=== PATIENT | male | born 2000 | race African-American/Black ===

== ENCOUNTER 2018-10-06 23:09 | Emergency (ER) | payer OTHER ==
[~2018-10-06] VITALS: Ht 180.3 cm; Wt 63.6 kg
[2018-10-07] MEDS ORDERED: GLYCERIN ADULT SUPP PR ONE (00:15)
[2018-10-07 00:48] VITALS: BP 127/81
== END 2018-10-07 00:44 | disposition home or self-care (01) ==
LOC: M ED 23:09
DX: K59.00 Constipation, unspecified (principal)

== ENCOUNTER 2018-10-13 20:14 | Emergency (ER) | payer OTHER ==
[~2018-10-13] VITALS: Ht 180.3 cm; Wt 63.6 kg
[2018-10-13] MEDS ORDERED: COLA100C5 PO (23:03)
[2018-10-13] MEDS ORDERED: MIRA3350 PO (23:03)
[2018-10-13 23:16] VITALS: BP 130/74
--- NOTE | 2018-10-14 09:19 | REP ---
ABDOMEN, FLAT UPRIGHT, PA CHEST, THREE VIEWS: HISTORY: Abdominal cramping. Air is present in small and large intestine. There are no air fluid levels or dilated loops of intestine. There is no pneumoperitoneum. The lungs are clear. IMPRESSION: Nonspecific bowel gas pattern. Electronically Signed by Yovany Zamorano MD 10/14/2018 09:27 A
== END 2018-10-13 23:18 | disposition home or self-care (01) ==
LOC: M ED 20:14
DX: K59.00 Constipation, unspecified (principal); K64.9 Unspecified hemorrhoids

== ENCOUNTER 2018-10-14 22:32 | Emergency (ER) | payer OTHER ==
[~2018-10-14] VITALS: Ht 180.3 cm; Wt 63.6 kg
[~2018-10-14 22:32] MED LIST: COLA100C5 PO; MIRA3350 PO
[2018-10-15] MEDS ORDERED: NAPR-885 PO (00:22)
[2018-10-15 00:25] VITALS: BP 130/79
--- NOTE | 2018-10-15 08:19 | REP ---
RIGHT FINGERS, FOUR VIEWS: HISTORY: 5th finger injury. There is a nondisplaced comminuted fracture of the distal phalange of the 5th digit. There is no dislocation. The joint spaces are normal in appearance. IMPRESSION: Nondisplaced comminuted fracture of the 5th distal phalange. Electronically Signed by Yovany Zamorano MD 10/15/2018 08:57 A
== END 2018-10-15 00:34 | disposition home or self-care (01) ==
LOC: M ED 22:32
DX: S62.66 Nondisplaced fracture of distal phalanx of finger (principal); X58.XXXD Exposure to other specified factors, subsequent encounter

== ENCOUNTER 2019-03-27 13:04 | Emergency (ER) | payer OTHER ==
[~2019-03-27] VITALS: Ht 180.3 cm; Wt 63.6 kg
[2019-03-27 13:04] VITALS: BP 153/96
[~2019-03-27 13:04] MED LIST changes: +NAPR-885 PO
[2019-03-27 15:46] LABS: CHLAMYDIA DNA AMPLIFICATION NEGATIVE (NEGATIVE); GC DNA AMPLIFICATION NEGATIVE (NEGATIVE)
[2019-03-27] MEDS ORDERED: ANUS25SU PR (17:40)
== END 2019-03-27 18:01 | disposition home or self-care (01) ==
LOC: M ED 13:04
DX: Z11.3 Encounter for screening for infections with a predominantly sexual mode of transmission (principal); K64.9 Unspecified hemorrhoids; I25.10 Atherosclerotic heart disease of native coronary artery without angina pectoris

== ENCOUNTER 2019-11-19 23:56 | Emergency (ER) | payer OTHER ==
[~2019-11-19] VITALS: Ht 180.3 cm; Wt 71.0 kg
[~2019-11-19 23:56] MED LIST changes: +ANUS25SU PR
[2019-11-19 23:57] VITALS: BP 135/87
== END 2019-11-20 02:06 | disposition left against medical advice (07) ==
LOC: M ED 23:56
DX: Z53.21 Procedure and treatment not carried out due to patient leaving prior to being seen by health care provider (principal)

== ENCOUNTER 2021-05-25 21:27 | Emergency (ER) | payer OTHER ==
[~2021-05-25] VITALS: Ht 180.3 cm; Wt 73.2 kg
[2021-05-26 00:09] LABS: GC DNA AMPLIFICATION NEGATIVE (NEGATIVE)
[2021-05-26 05:25] VITALS: BP 159/92
== END 2021-05-26 07:30 | disposition left against medical advice (07) ==
LOC: M ED 21:27
DX: Z53.21 Procedure and treatment not carried out due to patient leaving prior to being seen by health care provider (principal)